=== PATIENT | female | born 2000 | race Caucasian/White ===

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

== ENCOUNTER 2019-08-10 14:26 | Outpatient (CLI) | payer MEDICAID ==
--- NOTE | 2019-08-11 06:23 | Ultrasound Report ---
Reason: DYSMENORRHEA/PELVIC PAIN Procedure Date: 08/10/2019 Accession Number: [id number] / [id number] Procedure: US - Pelvic w/Transvaginal CPT Code: Final Report FULL RESULT: EXAM: PELVIC ULTRASOUND EXAM DATE: 08/10/2019 04:07 PM. CLINICAL HISTORY: DYSMENORRHEA/PELVIC PAIN. COMPARISON: None. TECHNIQUE: Realtime transabdominal pelvic scan performed to identify the uterus and adnexa and as an overview of other pelvic structures, followed by transvaginal scan to provide greater detail of the uterus and adnexa, with static image documentation. FINDINGS: Uterus: 7.1 x 2.7 x 3.9 cm, volume 41.3 cc. Anteverted position. Normal overall size and echotexture. Masses: None. Endometrium: 1.9 mm. Normal. Cervix: Unremarkable. Right Ovary: 3.4 x 1.8 x 2.8 cm, volume 8.9 cc. Normal echotexture and blood flow. Left Ovary: 3.4 x 1.7 x 2.2 cm, volume 9.2 cc. Normal echotexture and blood flow. Free Fluid: Trace to small free fluid in pelvic cul-de-sac. Other: None. IMPRESSION: 1. Unremarkable appearance of uterus and ovaries. 2. Trace to small free fluid in the pelvis, nonspecific, and may be physiologic. RADIA
== END 2019-08-10 14:27 | disposition home or self-care (01) ==
LOC: DI 14:26
PROVIDERS: ATTEND Obstetrics & Gynecology
DX: N94.6 Dysmenorrhea, unspecified (principal); R10.2 Pelvic and perineal pain
CPT/HCPCS: 76830; 76856

== ENCOUNTER 2019-08-27 16:26 | Emergency (ER) | payer MEDICAID ==
--- NOTE | 2019-08-27 16:32 | ED Physician Documentation ---
PD HPI URI - Stated complaint Stated Complaint: COUGH - History obtained from History obtained from: Patient - History of Present Illness Timing - onset: How many weeks ago (3) Timing duration: Weeks (3) Timing details: Gradual onset, Still present (She has had cough for about 3 weeks which has worsened over the last 3 or 4 days with now productive of white to smith sputum and worse breathing. She denies any fever or chills. She has not noticed any wheezing per se. She had light diarrhea but no nausea or vomiting. She denies any underlying lung problems such as asthma.) Associated symptoms: Nasal congestion, Productive cough, Dyspnea. No: Fever, Chills, Hemoptysis, Chest pain Contributing factors: No: Sick contact, Travel, Immunocompromised, COPD / asthma Recently seen: Not recently seen Review of Systems Constitutional: reports: Myalgias. denies: Fever, Chills Nose: reports: Congestion. denies: Rhinorrhea / runny nose Throat: denies: Sore throat Cardiac: denies: Chest pain / pressure Respiratory: reports: Dyspnea, Cough. denies: Wheezing GI: reports: Diarrhea (mild). denies: Abdominal Pain, Nausea, Vomiting Skin: denies: Rash Neurologic: denies: Generalized weakness PD PAST MEDICAL HISTORY - Past Medical History Cardiovascular: Murmur Respiratory: None - Past Surgical History Past Surgical History: No - Present Medications Home Medications: Ambulatory Orders Medication Instructions Recorded Confirmed Benzonatate [Tessalon Perle] 100 mg PO TID PRN #25 capsule 08/27/19 Cetirizine [ZyrTEC] 1 tab DAILY 08/27/19 08/27/19 Doxycycline Monohydrate 100 mg PO BID #14 tablet 08/27/19 dexAMETHasone [Decadron] 4 mg PO DAILY #5 tablet 08/27/19 guaiFENesin/DEXTROMETHORPHAN 10 ml Q8HR 08/27/19 08/27/19 [Robitussin Dm] - Allergies Allergies/Adverse Reactions: Allergies Allergy/AdvReac Type Severity Reaction Status Date / Time No Known Drug Allergies Allergy Verified 08/27/19 16:33 - Social History Does the pt smoke?: No Smoking Status: Never smoker Does the pt drink ETOH?: No Does the pt have substance abuse?: No - Immunizations Immunizations are current?: Yes - POLST Patient has POLST: No PD ED PE NORMAL - Vitals Vital signs reviewed: Yes - General General: Alert and oriented X 3, No acute distress, Well developed/nourished - HEENT HEENT: Ears normal, Moist mucous membranes, Pharynx benign - Neck Neck: Supple, no meningeal sign, No adenopathy - Cardiac Cardiac: RRR, No murmur - Respiratory Respiratory: Clear bilaterally - Abdomen Abdomen: Soft, Non tender - Derm Derm: Normal color, Warm and dry - Neuro Neuro: Alert and oriented X 3, No motor deficit, Normal speech Results - Vitals Vitals: Vital Signs - 24 hr 08/27/19 16:33 Temperature 37.2 C Heart Rate 94 Respiratory 16 Rate Blood Pressure 111/62 O2 Saturation 100 Oxygen O2 Source Room air PD MEDICAL DECISION MAKING - ED course Complexity details: considered differential (Prolonged duration of cough and now worsening with some production and to it and worsened breathing. Presume some secondary bronchitis on top of a viral illness.), d/w patient Departure - Departure Disposition: 01 Home, Self Care Clinical Impression: Upper respiratory infection Qualifiers: URI type: unspecified URI Qualified Code(s): J06.9 - Acute upper respiratory infection, unspecified Acute bronchitis Qualifiers: Bronchitis organism: unspecified organism Qualified Code(s): J20.9 - Acute bronchitis, unspecified Condition: Stable Record reviewed to determine appropriate education?: Yes Instructions: ED Upper Resp Infec Abx Tx Follow-Up: John Perez MD [Primary Care Provider] - Prescriptions: Benzonatate [Tessalon Perle] 100 mg PO TID PRN #25 capsule PRN Reason: Cough dexAMETHasone [Decadron] 4 mg PO DAILY #5 tablet Doxycycline Monohydrate 100 mg PO BID #14 tablet Comments: Stay well-hydrated. Tylenol or ibuprofen for fevers or pains. [id number] cough medicine as needed. Given the duration of the cough and now worsening, will presume some bronchitis infection that may be bacterial. Doxycycline antibiotic twice daily for a week. Decadron steroid for inflammation of the bronchials to decrease irritation and therefore less coughing and better breathing. Add Tessalon if needed for cough suppression. I would anticipate improvement over the next several days and resolution over a week. Recheck if not better during that timeframe.
[2019-08-27 16:34] VITALS: BP 111/62
[2019-08-27] MEDS ORDERED: BENZONATATE 100 MG CAPSULE PO STA (16:47)
[2019-08-27] MEDS ORDERED: DEXAMETHASONE 10 MG/ML VIAL PO STA (16:47)
[2019-08-27] MEDS ORDERED: DOXYCYCLINE 100 MG TABLET PO STA (16:47)
[2019-08-27] MEDS ORDERED: CHERRY SYRUP 10 ML UDC PO ONE (16:47)
== END 2019-08-27 17:01 | disposition home or self-care (01) ==
LOC: ED 16:26
DX: J06.9 Acute upper respiratory infection, unspecified (principal); J20.9 Acute bronchitis, unspecified
CPT/HCPCS: 99283; 99284; A9270